=== PATIENT | female | born 1960 | race Caucasian/White ===

== ENCOUNTER → 2016-10-11 | Outpatient (CLI) | payer OTHER ==
--- NOTE | 2016-10-11 14:51 | MA ---
Screening Digital Mammogram With iCAD Analysis Clinical Indications: Routine screening. The patient has had a benign left breast biopsy. Technique: Standard cephalocaudal and mediolateral oblique projections are obtained. This examination is processed by the iCAD computer aided detection system. Comparison: November 2014, July 2013, February 2012, February 2010, February 2009, February 2008. Breast density: Type B; Scattered fibroglandular densities. Findings: CAD was reviewed. No masses, suspicious calcifications or other signs of malignancy are see n. There has been no significant change in the appearance of either breast. Impression: Negative mammogram. BI-RADS 1. Recommendation: Routine mammographic screening in one year as long as physical examination is neg[facility]. Negative mammography should not preclude additional workup of a clinically suspicious finding. The patient's information is entered into a reminder system with a target due date for her next mammo gram.
== END ==
LOC: CIMAGING 10:02
PROVIDERS: ATTEND Family Medicine
DX: Z12.31 Encounter for screening mammogram for malignant neoplasm of breast (principal)
CPT/HCPCS: G0202

== ENCOUNTER 2016-11-02 11:05 | Emergency (ER) | payer OTHER ==
[2016-11-02 11:39] VITALS: BP 136/72; PULSE 75; RESP 16; TEMP 98.8; O2SAT 97
--- NOTE | 2016-11-02 12:09 | UCPHY ---
H & P Time Seen by Provider: 11/02/16 11:27 Patient Type: Established HPI/ROS: HPI Your discomfort, vertigo. 56-year-old female by private vehicle. This patient reports that for the last 3 -4 weeks she has had ongoing sensation of discomfort in her right ear with a sensation of fullness, a dulling in her hearing and intermittent vertigo. She reports that she was seen by an ENT physician whom she did not have a lot of confidence in. She had some testing done and was told that the testing was not normal but they were not sure what was wrong. She then saw her primary care physician Dr. Akhtar who stated that she may have a viral infection but was not sure and put her on a course of Keflex for 10 days. She reports that she felt better on this but she reports that this sensation then went to her left ear. She presents with a sensation of fullness, dull aching in her left ear, decreased hearing and intermittent vertigo today. She denies any tinnitus. ROS: Constitutional: No fever, no chills. No weakness. Eyes: No discharge. No changes in vision. ENT: No sore throat. No nasal congestion or rhinorrhea. As above. Musculoskeletal: No back pain. No neck pain. No myalgias or arthralgias. Skin: No rashes. Neurological: No headache. No focal weakness or altered sensation. As above. Past medical history: As above. Hysterectomy. Social history: She is . Here by herself. Nonsmoker. Physical Exam: General Appearance: Alert, no distress. This patient is responding to questions appropriately and in full sentences. This patient appears well- hydrated and well-nourished. Eyes: Pupils equal and round no pallor or injection. No lid edema, erythema or injection. Mild Uni directional horizontal nystagmus. No photophobia. ENT, Mouth: Mucous membranes are moist. The pharyngeal tissues are unremarkable. No edema or swelling. No asymmetry suggestive of abscess. No erythema or exudates. The bilateral tympanic membranes are clear with easily identifiable landmarks. The external auditory canals are unremarkable bilaterally. No tenderness on palpation of the bilateral frontal sinuses and maxillary sinuses. No soft tissue changes to these areas. Neurological: Motor sensory function is grossly intact. Cranial nerves are normal. Gait is normal. She has a mildly positive head impulse test with catch- up saccades. Vertigo is worsened with head movement. Skin: Warm and dry, no rashes. Musculoskeletal: Neck is supple and nontender. No tenderness on palpation over the lateral soft tissues of her neck/carotid areas. No posterior neck or occipital tenderness. Extremities are symmetrical. All joints range without pain or impingement. Psychiatric: No agitation. No depression. Database: EKG: Imaging: Procedures: Emergency department course: Blood sugar was tested at urgent care. This is 104. After my evaluation I explained that I would treat her initially with Antivert. However, the plan will be to have her follow up with [facility], Dr. Jonathan Moody or 1 of his partners for re-evaluation and further management. I discussed my confidence in this ENT group with her. She assured me that she would do this. She will be started on prednisone in the emergency department. She was given 60 mg. She will be sent home with Antivert. Return to Urgent Care/emergency department precautions have been discussed with her in detail. She understands for follow-up and will call [facility] this afternoon for appointment time tomorrow. All of her questions were answered. She was discharged in good condition. Differential Diagnosis: The differential diagnosis on this patient includes but is not limited to acute vestibular neuritis/labyrinthitis, blocked eustachian tubes. Otitis media, otitis externa, malignant otitis externa, central etiology of vertigo, CVA unlikely. This represents a partial list of diagnoses considered. These considerations are based on history, physical exam, past history and reassessment. Smoking Status: Never smoked Constitutional: Initial Vital Signs Temperature (C) 37.1 C 11/02/16 11:35 Heart Rate 75 11/02/16 11:35 Respiratory Rate 16 11/02/16 11:35 Blood Pressure 136/72 H 11/02/16 11:35 O2 Sat (%) 97 11/02/16 11:35 O2 Delivery Mode Room Air Allergies/Adverse Reactions: clindamycin Allergy (Verified 11/02/16 11:39) Sulfa (Sulfonamide Antibiotics) Allergy (Verified 11/23/13 14:24) Home Medications: Medication Instructions Recorded Digestive Enzymes 11/02/16 Meclizine HCl [ANTIVERT] 25 mg PO Q6 PRN #10 tab 11/02/16 predniSONE [prednisone 20mg (RX)] 60 mg PO DAILY #10 tab 11/02/16 MDM/Departure - MDM Medications Given: Discontinued Medications Meclizine HCl (Meclizine Hcl) 25 mg PO EDNOW ONE Stop: 11/02/16 12:18 Last Admin: 11/02/16 12:39 Dose: 25 mg Prednisone (Prednisone) 60 mg PO EDNOW ONE Stop: 11/02/16 12:17 Last Admin: 11/02/16 12:39 Dose: 60 mg - Depart Disposition: Home, Routine, Self-Care Clinical Impression: Labyrinthitis Condition: Good Instructions: Labyrinthitis (ED) Additional Instructions: Read and follow provided instructions. Follow-up with [facility]NT, Dr. Jonathan Moody, Dr. Ellington or 1 of their partners for re-evaluation tomorrow. Call their office this afternoon for follow-up. Explained this is an emergency department follow-up for vertigo and hearing problems. Take medication as prescribed. Return to the emergency department for worsening symptoms or other serious concerns. Prescriptions: Meclizine HCl [ANTIVERT] 25 mg PO Q6 PRN #10 tab PRN Reason: Dizziness predniSONE [prednisone 20mg (RX)] 60 mg PO DAILY #10 tab Referrals: Gabino Ellington MD [Medical Doctor] - As per Instructions Jonathan Moody MD [Medical Doctor] - As per Instructions - PQRS PQRS Measurement: 134: Depression screening and followup, PRIME MD-PHQ2 (12 years and older) Over the last 2 weeks, how often have you been bothered by any of the following problems? 1. Feeling down, depressed, or hopeless? 2. Little interest or pleasure in doing things? Answered no to both questions. 130: Documentation of medications. Reviewed all patient medications, doses, route and frequency. 226: Do you smoke? No. 47: 65 and older: Advanced care planning. Patient designates surrogate decision maker as spouse. 51: 18 years old and older with diagnosis of COPD, spirometry performance. NA 52: 18 years old and older with COPD and symptoms of COPD or FEV1<60% predicted prescribed a B Agonist. NA
[2016-11-02] MEDS ORDERED: predniSONE 20 MG TAB PO ONE (12:16)
[2016-11-02] MEDS ORDERED: MECLIZINE HCL 25 MG TAB PO ONE (12:17)
== END 2016-11-02 12:40 | disposition home or self-care (01) ==
LOC: CED 11:05
DX: H83.09 Labyrinthitis, unspecified ear (principal)
CPT/HCPCS: 99214-PO; G0463-PO

== ENCOUNTER → 2018-08-08 | Outpatient (CLI) | payer OTHER | LOC: CIMAGING 11:06 | PROVIDERS: ATTEND Family Medicine | DX: Z12.31 Encounter for screening mammogram for malignant neoplasm of breast (principal) ==